=== PATIENT | female | born 1985 | race American Indian/Alaskan Native ===

== ENCOUNTER 2017-07-28 19:53 | Emergency (ER) | payer SELFPAY ==
[2017-07-28 20:23] LABS: Basophils % (Auto) 0.3 % (0.0-1.8); Hematocrit 38.5 % (30.3-42.9); Hemoglobin 12.5 gm/dl (10.1-14.3); Lymphocytes # (Auto) 0.8 K/mm3 (1.2-5.4); Lymphocytes % (Auto) 7.6 % (13.4-35.0); Mean Corpuscular HGB Conc 33 % (30-34); Mean Corpuscular Volume 79 fl (79-97); Monocytes # (Auto) 0.7 K/mm3 (0.0-0.8); Monocytes % (Auto) 6.8 % (0.0-7.3); Platelet Count 219 K/mm3 (140-440); Red Blood Count 4.89 M/mm3 (3.65-5.03); Red Cell Distribution Width 14.2 % (13.2-15.2)
[2017-07-28] MEDS ORDERED: ZOFRAN IV ONE (20:26)
[2017-07-28] MEDS ORDERED: NACL 0.9% 1000 ML 1,000 ML IV ONE (20:26)
[2017-07-28] MEDS ORDERED: NORCO PO ONE (20:27)
[2017-07-28 20:33] LABS: Mean Corpuscular Hemoglobin 26 pg (28-32)
[2017-07-28 20:34] LABS: Alanine Aminotransferase 19 units/L (7-56); Albumin 4.4 g/dL (3.9-5); BUN/Creatinine Ratio 18; Blood Urea Nitrogen 11 mg/dL (7-17); Calcium 8.7 mg/dL (8.4-10.2); Hemolysis Index 8
[2017-07-28] MEDS ORDERED: BICILLIN L-A IM ONE (22:23)
--- NOTE | 2017-07-28 23:02 | Emergency Department Report ---
ED General Adult HPI - General Chief complaint: Nausea/Vomiting/Diarrhea Stated complaint: NAUSEA AND VOMITING Time Seen by Provider: 07/28/17 20:20 Source: patient Mode of arrival: Stretcher Limitations: No Limitations - History of Present Illness Initial comments: Patient is a 32-year-old asthmatic female who is presenting with nausea vomiting or sore throat. Patient was brought to the emergency department today because she is having difficulty swallowing and pain in the throat with radiation to left ear. Patient states she also has body aches as well. Patient has been vomiting throughout today has not able to keep anything down. Patient's family reports that she's been very lethargic today. Severity scale (0 -10): 6 Quality: aching Consistency: constant Improves with: none Associated Symptoms: headaches, loss of appetite, malaise, nausea/vomiting, weakness. denies: confusion, cough, diaphoresis, rash, seizure, shortness of breath, syncope - Related Data Previous Rx's Medication Instructions Recorded Last Taken Type HYDROcodone/ACETAMINOPHEN 15 ml PO Q6HR PRN #150 solution 07/28/17 Unknown Rx [Hydrocodon-Acetamin 7.5-325/15] Ondansetron [Zofran Odt] 4 mg PO Q8HR #10 tab.rapdis 07/28/17 Unknown Rx prednisoLONE [Prednisolone] 45 mg PO DAILY 5 Days solution 07/28/17 Unknown Rx Allergies Allergy/AdvReac Type Severity Reaction Status Date / Time ibuprofen Allergy Unknown Verified 07/28/17 19:59 chloroquine AdvReac Swelling Verified 08/29/15 20:23 ED Review of Systems ROS: Stated complaint: NAUSEA AND VOMITING Other details as noted in HPI Comment: All other systems reviewed and negative ED Past Medical Hx - Past Medical History Previous Medical History?: No Hx Hypertension: No Hx Diabetes: No Hx Deep Vein Thrombosis: No Hx Renal Disease: No Hx Sickle Cell Disease: No Hx Seizures: No Hx Asthma: No - Surgical History Past Surgical History?: No - Social History Smoking Status: Unknown if ever smoked Substance Use Type: None - Medications Home Medications: Home Medications Medication Instructions Recorded Confirmed Last Taken Type HYDROcodone/ACETAMINOPHEN 15 ml PO Q6HR PRN #150 solution 07/28/17 Unknown Rx [Hydrocodon-Acetamin 7.5-325/15] Ondansetron [Zofran Odt] 4 mg PO Q8HR #10 tab.rapdis 07/28/17 Unknown Rx prednisoLONE [Prednisolone] 45 mg PO DAILY 5 Days solution 07/28/17 Unknown Rx ED Physical Exam - General Limitations: No Limitations General appearance: alert, in no apparent distress - Head Head exam: Present: atraumatic, normocephalic - Eye Eye exam: Present: normal appearance - ENT ENT exam: Present: mucous membranes moist, other (posterior pharynx shows some erythema) - Neck Neck exam: Present: normal inspection - Respiratory Respiratory exam: Present: normal lung sounds bilaterally. Absent: respiratory distress - Cardiovascular Cardiovascular Exam: Present: regular rate, normal rhythm. Absent: systolic murmur, diastolic murmur, rubs, gallop - GI/Abdominal GI/Abdominal exam: Present: soft, normal bowel sounds. Absent: distended, tenderness, guarding, rebound - Extremities Exam Extremities exam: Present: normal inspection - Back Exam Back exam: Present: normal inspection - Neurological Exam Neurological exam: Present: alert, oriented X3 - Psychiatric Psychiatric exam: Present: normal affect, normal mood - Skin Skin exam: Present: warm, dry, intact, normal color. Absent: rash ED Course Vital Signs 07/28/17 07/28/17 07/28/17 19:52 19:59 20:00 Temperature 97.9 F Pulse Rate 100 H 85 Respiratory 18 16 Rate Blood Pressure 136/68 136/68 Blood Pressure [Left] O2 Sat by Pulse 100 100 100 Oximetry 07/28/17 07/28/17 07/28/17 20:21 20:22 20:30 Temperature Pulse Rate 91 H 90 Respiratory 18 18 19 Rate Blood Pressure 119/75 Blood Pressure [Left] O2 Sat by Pulse 99 97 Oximetry 07/28/17 07/28/17 07/28/17 20:31 20:45 20:46 Temperature 100.3 F H Pulse Rate 93 H 78 Respiratory 18 20 16 Rate Blood Pressure 151/124 Blood Pressure 144/79 [Left] O2 Sat by Pulse 98 99 Oximetry 07/28/17 07/28/17 07/28/17 21:00 21:15 21:30 Temperature Pulse Rate 73 78 78 Respiratory 20 21 19 Rate Blood Pressure 130/73 130/73 112/62 Blood Pressure [Left] O2 Sat by Pulse 99 98 98 Oximetry 07/28/17 07/28/17 07/28/17 21:45 22:00 22:15 Temperature Pulse Rate 82 73 77 Respiratory 23 18 17 Rate Blood Pressure 112/62 115/62 115/62 Blood Pressure [Left] O2 Sat by Pulse 98 97 98 Oximetry 07/28/17 22:30 Temperature Pulse Rate 83 Respiratory 14 Rate Blood Pressure 103/71 Blood Pressure [Left] O2 Sat by Pulse 97 Oximetry ED Medical Decision Making - Lab Data Result diagrams: 07/28/17 20:07 07/28/17 20:07 Lab Results 07/28/17 07/28/17 07/28/17 Range/Units 20:07 20:07 20:29 WBC 9.9 (4.5-11.0) K/mm3 RBC 4.89 (3.65-5.03) M/mm3 Hgb 12.5 (10.1-14.3) gm/dl Hct 38.5 (30.3-42.9) % MCV 79 (79-97) fl MCH 26 L (28-32) pg MCHC 33 (30-34) % RDW 14.2 (13.2-15.2) % Plt Count 219 (140-440) K/mm3 Lymph % (Auto) 7.6 L (13.4-35.0) % [place] % (Auto) 6.8 (0.0-7.3) % Eos % (Auto) 0.0 (0.0-4.3) % Baso % (Auto) 0.3 (0.0-1.8) % Lymph # 0.8 L (1.2-5.4) K/mm3 [place] # 0.7 (0.0-0.8) K/mm3 Eos # 0.0 (0.0-0.4) K/mm3 Baso # 0.0 (0.0-0.1) K/mm3 Seg Neutrophils % 85.3 H (40.0-70.0) % Seg Neutrophils # 8.5 H (1.8-7.7) K/mm3 Sodium 137 (137-145) mmol/L Potassium 3.3 L (3.6-5.0) mmol/L Chloride 96.8 L (98-107) mmol/L Carbon Dioxide 25 (22-30) mmol/L Anion Gap 19 mmol/L BUN 11 (7-17) mg/dL Creatinine 0.6 L (0.7-1.2) mg/dL Estimated GFR > 60 ml/min BUN/Creatinine Ratio 18 % Glucose 90 (65-100) mg/dL Calcium 8.7 (8.4-10.2) mg/dL Total Bilirubin 0.50 (0.1-1.2) mg/dL AST 18 (5-40) units/L ALT 19 (7-56) units/L Alkaline Phosphatase 47 (35-129) units/L Total Protein 7.4 (6.3-8.2) g/dL Albumin 4.4 (3.9-5) g/dL Albumin/Globulin Ratio 1.5 % Monoscreen Negative (Negative) Group A Strep Rapid (Negative) 07/28/17 Range/Units 21:52 WBC (4.5-11.0) K/mm3 RBC (3.65-5.03) M/mm3 Hgb (10.1-14.3) gm/dl Hct (30.3-42.9) % MCV (79-97) fl MCH (28-32) pg MCHC (30-34) % RDW (13.2-15.2) % Plt Count (140-440) K/mm3 Lymph % (Auto) (13.4-35.0) % [place] % (Auto) (0.0-7.3) % Eos % (Auto) (0.0-4.3) % Baso % (Auto) (0.0-1.8) % Lymph # (1.2-5.4) K/mm3 [place] # (0.0-0.8) K/mm3 Eos # (0.0-0.4) K/mm3 Baso # (0.0-0.1) K/mm3 Seg Neutrophils % (40.0-70.0) % Seg Neutrophils # (1.8-7.7) K/mm3 Sodium (137-145) mmol/L Potassium (3.6-5.0) mmol/L Chloride (98-107) mmol/L Carbon Dioxide (22-30) mmol/L Anion Gap mmol/L BUN (7-17) mg/dL Creatinine (0.7-1.2) mg/dL Estimated GFR ml/min BUN/Creatinine Ratio % Glucose (65-100) mg/dL Calcium (8.4-10.2) mg/dL Total Bilirubin (0.1-1.2) mg/dL AST (5-40) units/L ALT (7-56) units/L Alkaline Phosphatase (35-129) units/L Total Protein (6.3-8.2) g/dL Albumin (3.9-5) g/dL Albumin/Globulin Ratio % Monoscreen (Negative) Group A Strep Rapid Positive A (Negative) - Medical Decision Making Patient is a 32-year-old Female is presenting with sore throat and nausea vomiting. Patient was hydrated and given nausea medicine. Patient was able to keep down oral Vicodin. Patient will be given a Bicillin shot for tested positive for strep be discharged home. Critical care attestation.: If time is entered above; I have spent that time in minutes in the direct care of this critically ill patient, excluding procedure time. ED Disposition Clinical Impression: Strep pharyngitis Disposition: DC-01 TO HOME OR SELFCARE Is pt being admited?: No Does the pt Need Aspirin: No Condition: Stable Instructions: Strep Throat (ED) Prescriptions: HYDROcodone/ACETAMINOPHEN [Hydrocodon-Acetamin 7.5-325/15] 15 ml PO Q6HR PRN # 150 solution PRN Reason: Pain Ondansetron [Zofran Odt] 4 mg PO Q8HR #10 tab.rapdis prednisoLONE [Prednisolone] 45 mg PO DAILY 5 Days solution Referrals: ENE WAKEFIELD MD [Primary Care Provider] - 3-5 Days
[2017-07-28 23:17] VITALS: BP 111/71
== END 2017-07-28 23:33 | disposition home or self-care (01) ==
LOC: ED 19:53
DX: J02.0 Streptococcal pharyngitis (principal); R11.2 Nausea with vomiting, unspecified; R63.0 Anorexia; Z88.6 Allergy status to analgesic agent; Z88.8 Allergy status to other drugs, medicaments and biological substances
CPT/HCPCS: 36415; 80053; 85025; 86308; 87430; 96361; 96372; 96374; 99284; J0561; J2405; J7030

== ENCOUNTER 2018-05-04 00:22 | Outpatient (CLI) | payer SELFPAY ==
[2018-05-04] MEDS ORDERED: LACTATED RINGERS 1,000 ML IV ONE (00:34)
[2018-05-04] MEDS ORDERED: LACTATED RINGERS 1,000 ML ONE (00:39)
[2018-05-04 00:50] VITALS: BP 105/51
[2018-05-04 00:58] LABS: Bilirubin,Urine NEG (Negative); Blood,Urine SM (Negative); Color,Urine Straw (Yellow); Protein,Urine <15 mg/dL mg/dL (Negative); Urobilinogen,Urine < 2.0 mg/dL (<2.0); WBC,Urine < 1.0 /HPF (0.0-6.0)
[2018-05-04 01:06] LABS: Amphetamine Screen,Urine PRESUMPTIVE NEGATIVE; Benzodiazepines Screen,Urine PRESUMPTIVE NEGATIVE; Cannabinoid Screen,Urine PRESUMPTIVE NEGATIVE; Cocaine Screen,Urine PRESUMPTIVE NEGATIVE; Methadone Screen,Urine PRESUMPTIVE NEGATIVE; Opiate Screen,Urine PRESUMPTIVE NEGATIVE
== END 2018-05-04 01:36 | disposition home or self-care (01) ==
LOC: TRG 00:22
PROVIDERS: ATTEND Obstetrics & Gynecology
DX: O47.03 False labor before 37 completed weeks of gestation, third trimester (principal); Z3A.35 35 weeks gestation of pregnancy
CPT/HCPCS: 59025; 80307; 81001; 96360; J7120